=== PATIENT | female | born 1960 | race African-American/Black ===

== ENCOUNTER 2018-03-14 06:11 | Outpatient (CLI) | payer MEDICARE ==
[2018-03-14 13:20] LABS: #Basophils 0.1 thou/uL (0.0-0.2); #Eosinphils 0.3 thou/uL (0.0-0.7); #Lymphocytes 2.8 thou/uL (1.20-3.40); #Monocytes 0.6 thou/uL (0.11-0.59); #Neutrophils 6.3 thou/uL (1.40-6.50); %Basophils 0.8 % (0.0-1.0); %Eosinophils 3.4 % (0.0-10.0); %Lymphocytes 27.5 % (21.0-51.0); %Monocytes 5.6 % (0.0-10.0); %Neutrophils 62.7 % (42.0-75.0); Hemoglobin 11.7 g/dL (12.0-16.0); Mean Corpuscular HGB CONC 32.1 g/dL (32.0-36.0); Mean Corpuscular Hemoglobin 27.3 pg (27.0-31.0); Mean Corpuscular Volume 85.1 fL (78.0-98.0); Mean Platelet Volume 7.5 fL (7.4-10.4); Platelet Count 352 thou/uL (130-400); RBC Distribution Width 14.7 % (11.5-14.5); Red Blood Cell (RBC) Count 4.28 mill/uL (4.20-5.40)
[2018-03-14 13:29] LABS: Prothrombin Time 13.4 SEC (12.0-14.7)
[2018-03-14 13:51] LABS: ALT (SGPT) Less than 7 U/L (8-55); AST (SGOT) 11 U/L (5-34); Albumin 3.7 g/dL (3.5-5.0); Alkaline Phosphatase 66 U/L (40-150); Anion Gap 15 mmol/L (10-20); BUN (Urea Nitrogen) 26 mg/dL (9.8-20.1); Bilirubin, Total 0.4 mg/dL (0.2-1.2); Calc. Creatinine Clearance 0 mL/min (70-130); Calcium 9.2 mg/dL (7.8-10.44); Carbon Dioxide 23 mmol/L (22-29); Chloride 106 mmol/L (98-107); Estimated GFR-MDRD 49; Globulin 3.5 g/dL (2.4-3.5); Glucose 94 mg/dL (70-105); Potassium 4.1 mmol/L (3.5-5.1); Protein, Total 7.2 g/dL (6.0-8.3); Sodium 140 mmol/L (136-145)
== END 2018-03-14 06:12 | disposition home or self-care (01) ==
LOC: LABBT 06:11 → EDSTATUS 12:51
PROVIDERS: ATTEND Internal Medicine Cardiovascular Disease
DX: Z01.812 Encounter for preprocedural laboratory examination (principal); I42.0 Dilated cardiomyopathy
CPT/HCPCS: 80053; 85025; 85610; 85730

== ENCOUNTER 2018-11-12 11:30 | Outpatient (CLI) | payer MEDICARE ==
--- NOTE | 2018-11-12 15:58 | MMO ---
Bilateral MAMMO Bilat Screen [facility]. CLINICAL HISTORY: Patient is 58 years old and is seen for screening. The patient has no family history of breast cancer. The patient has no personal history of cancer. VIEWS: The views performed were: bilateral craniocaudal with tomosynthesis and bilateral mediolateral oblique with tomosynthesis. FILMS COMPARED: The present examination has been compared to prior imaging studies performed at [facility] on 09/27/2005 and 08/24/2010. This study has been interpreted with the assistance of computer-aided detection. MAMMOGRAM FINDINGS: There are scattered fibroglandular densities. There are no suspicious masses, suspicious calcifications, or new areas of architectural distortion. IMPRESSION: THERE IS NO MAMMOGRAPHIC EVIDENCE OF MALIGNANCY. A ROUTINE FOLLOW-UP MAMMOGRAM IN 1 YEAR IS RECOMMENDED. THE RESULTS OF THIS EXAM WERE SENT TO THE PATIENT. ACR BI-RADS Category 1 - Negative MAMMOGRAPHY NOTE: 1. A negative mammogram report should not delay a biopsy if a dominant of clinically suspicious mass is present. 2. Approximately 10% to 15% of breast cancers are not detected by mammography. 3. Adenosis and dense breasts may obscure an underlying neoplasm. Reported by: REVA FORMAN MD Electonically Signed: [id number]
== END 2018-11-12 11:31 | disposition home or self-care (01) ==
LOC: BICMAMMO 11:30
PROVIDERS: ATTEND Family Medicine
DX: Z12.31 Encounter for screening mammogram for malignant neoplasm of breast (principal)
CPT/HCPCS: 77063; 77067

== ENCOUNTER 2018-11-28 14:59 | Day surgery (SDC) | payer MEDICARE ==
[~2018-11-28 14:59] MED LIST: CEFAZOLIN 1 GM VIAL ONE; Glycopyrrolate 0.2 MG/ML 5 ML SYRINGE ONE; Lidocaine 1% PF 5 ML VIAL ONE; Lidocaine 4% PF 5 ML AMP ONE; Metoclopramide HCl 10 MG/2 ML VIAL ONE; Ondansetron PF 4 MG/2 ML Vial ONE; PHENYLEPHRINE-NS 100 MCG/ML 10 ML SYRINGE ONE; PROPOFOL 200 MG/20 ML VIAL ONE; Succinylcholine Chloride 20 MG/ML 10 ml SYRINGE FS ONE; Tobramycin/Dexamethasone Ophth Oint 3.5 GM TUBE ONE; Triamcinolone 40 MG/ML VIAL ONE; ePHEDrine 50 MG/ML VIAL ONE
[2018-11-28] MEDS ORDERED: EPINEPHrine 0.3 MG in Ophthalmic Irrigation Solution 500 ML FS SCH (15:01)
[2018-11-28] MEDS ORDERED: Fentanyl 100 MCG/2 ML VIAL ONE (15:50)
[2018-11-28] MEDS ORDERED: Midazolam HCl 2 mg/2 ml Vial ONE (15:50)
[2018-11-28] MEDS ORDERED: PROPOFOL 20 ML ONE (15:50)
[2018-11-28] MEDS ORDERED: Famotidine/PF 20 mg/2ml Vial ONE (15:50)
[2018-11-28] MEDS ORDERED: hydrALAZINE 20 MG/ML VIAL ONE (15:57)
[2018-11-28 16:30] LABS: Anion Gap 14 mmol/L (10-20); BUN (Urea Nitrogen) 35 mg/dL (9.8-20.1); Calc. Creatinine Clearance 0 mL/min (70-130); Calcium 9.8 mg/dL (7.8-10.44); Carbon Dioxide 21 mmol/L (22-29); Chloride 103 mmol/L (98-107); Estimated GFR-MDRD 41; Glucose 258 mg/dL (70-105); Potassium 4.4 mmol/L (3.5-5.1); Sodium 134 mmol/L (136-145)
--- NOTE | 2018-11-28 19:03 | OP ---
DATE OF PROCEDURE: 11/28/2018 PREOPERATIVE DIAGNOSES: Diabetic retinopathy and glaucoma right eye. POSTOPERATIVE DIAGNOSES: Diabetic retinopathy and glaucoma right eye. PROCEDURES PERFORMED: Pars plana vitrectomy, panretinal photocoagulation, membrane peel, tube shunt, scleral patch graft, right eye. ANESTHESIA: General endotracheal anesthesia. DESCRIPTION OF PROCEDURE: The patient was identified in the preoperative holding area. Appropriate informed consent for the planned surgical procedure on the right eye had been obtained. The patient was transported to the operative suite. Appropriate cardiopulmonary monitoring was established. General endotracheal anesthesia was initiated. Local anesthesia was obtained using retrobulbar block. The patient was prepped and draped in usual sterile manner for ophthalmic surgery for the right eye. Lid speculum was placed in the right eye. A 25-gauge trocar was placed in conjunctiva and sclera superotemporally, inferotemporally, and supranasally. Conjunctival peritomy was created supratemporally. FP7 tube shunt was secured to the sclera superior temporally. Light pipe vitreous cutter inserted in the eye. Core vitrectomy was performed. Vitreous membranes were removed. Panretinal photocoagulation was placed into the far retinal periphery. Peripheral iridotomy was created superiorly and the intra-ocular lens was repositioned into the posterior chamber. Anterior chamber immediately deepened. Tube was introduced through a 22-gauge sclerotomy superior temporally. Tutoplast was placed over the tube insertion site and the conjunctiva was closed with 6-0 plain gut suture. Retrobulbar Kenalog and subconjunctival Ancef were placed. Antibiotic ointment was placed. ointment placed. Eye was patched and shielded. The patient was taken to postoperative recovery unit in good condition having suffered no immediate perioperative complications. The patient was instructed to keep patch and shield on. Avoid lifting or bending, and followup appointment with Dr. Tay. Job ID: [id number]
== END 2018-11-28 19:05 | disposition home or self-care (01) ==
LOC: SDC 14:59
PROVIDERS: ATTEND Ophthalmology Retina Specialist
PROC: 08B43ZZ Excision of Right Vitreous, Percutaneous Approach (ICD-10-PCS; principal; 2018-11-28)
PROC: 08QE3ZZ Repair Right Retina, Percutaneous Approach (ICD-10-PCS; 2018-11-28)
DX: E11.39 Type 2 diabetes mellitus with other diabetic ophthalmic complication (principal); E11.319 Type 2 diabetes mellitus with unspecified diabetic retinopathy without macular edema; H43.311 Vitreous membranes and strands, right eye; H40.9 Unspecified glaucoma; H42 Glaucoma in diseases classified elsewhere
CPT/HCPCS: 66761; 67036; 80048; L8612; 36415; J0171; J0360; J0690; J2001; J2250; J2405; J2704; J2765; J3010; J3301; J3490; S0028

== ENCOUNTER 2019-08-18 20:51 | Inpatient (IN) | payer MEDICARE, OTHER ==
[2019-08-18] MEDS ORDERED: Acetaminophen 500 MG TAB ONE ×2 (21:02→21:15)
[2019-08-18] MEDS ORDERED: cefTRIAXone\\ROCEPHIN 2 GM VIAL ONE (21:15)
[2019-08-18 21:29] LABS: Base Excess-Venous -3.4 mmol/L (-2.0 to 3.0); Bicarbonate (HCO3v) 21.6 mmol/L (22.0-28.0); CO2 Tension (PvCO2) 38.1 mmHg (40.0-50.0); Calcium, Ionized 1.04 mmol/L (See Comments:); Chloride 106 mmol/L (98-107); Potassium 4.8 mmol/L (3.5-5.1); Sodium 136 mmol/L (138-145); T. Carbon Dioxide 22.8 mmol/L (22.0-28.0); vO2 Saturation-calc 50.2 % (60.0-85.0)
[2019-08-18 21:39] LABS: #Lymphocytes 1.6 thou/uL (1.20-3.40); #Monocytes 0.5 thou/uL (0.11-0.59); #Neutrophils 4.4 thou/uL (1.40-6.50); %Basophils 0.3 % (0.0-1.0); %Eosinophils 0.1 % (0.0-10.0); %Lymphocytes 24.2 % (21.0-51.0); %Monocytes 7.6 % (0.0-10.0); %Neutrophils 67.8 % (42.0-75.0); Hemoglobin 11.2 g/dL (12.0-16.0); Mean Corpuscular HGB CONC 32.8 g/dL (32.0-36.0); Mean Corpuscular Hemoglobin 28.5 pg (27.0-31.0); Mean Corpuscular Volume 86.8 fL (78.0-98.0); Platelet Count 219 thou/uL (130-400); Red Blood Cell (RBC) Count 3.92 mill/uL (4.20-5.40); White Blood Cell (WBC) Count 6.5 thou/uL (4.8-10.8)
[2019-08-18 21:54] LABS: ALT (SGPT) 14 U/L (8-55); AST (SGOT) 33 U/L (5-34); Albumin 3.5 g/dL (3.5-5.0); Alkaline Phosphatase 56 U/L (40-110); Anion Gap 18 mmol/L (10-20); BUN (Urea Nitrogen) 60 mg/dL (9.8-20.1); Bilirubin, Total 0.3 mg/dL (0.2-1.2); CK (CPK) 505 U/L (29-168); Calc. Creatinine Clearance 0 mL/min (70-130); Calcium 8.8 mg/dL (7.8-10.44); Carbon Dioxide 19 mmol/L (22-29); Chloride 102 mmol/L (98-107); Estimated GFR-MDRD 21; Globulin 4.5 g/dL (2.4-3.5); Glucose 104 mg/dL (70-105); Potassium 4.3 mmol/L (3.5-5.1); Sodium 135 mmol/L (136-145)
[2019-08-18] MEDS ORDERED: Azithromycin 500 MG VIAL ONE (22:39)
[2019-08-18] MEDS ORDERED: Dexamethasone 10 MG/ML VIAL ONE (22:39)
[2019-08-18 23:23] LABS: Bacteria/HPF 4+ HPF (None Seen); Bilirubin Negative (Negative); Blood, Urine 1+ (Negative); Clarity Extra Turbid (Clear); Glucose, Urine (Dipstick) Normal (Negative); Leukocyte 500 Leu/uL (Negative); Nitrite Negative (Negative); Protein, Urine (Dipstick) 600 mg/dL (Neg-Trace); Urobilinogen Normal mg/dL (Less than 2); WBC/HPF Greater than 50 HPF (0-3)
[2019-08-18 23:24] LABS: Urine Culture Reflex No No
[2019-08-18] MEDS ORDERED: Senokot S 8.6-50 MG TAB PO PRN (23:25)
[2019-08-18] MEDS ORDERED: Guaifenesin DM 100-10/5 ML UDCUP PO PRN (23:25)
[2019-08-18] MEDS ORDERED: HYDROcodone/Acetaminophen 5/325 mg Tablet PO PRN (23:25)
[2019-08-18] MEDS ORDERED: Dextrose 50% Abboject 50 ML SYRINGE SLOW IVP PRN (23:25)
[2019-08-18] MEDS ORDERED: Acetaminophen 325 MG TAB PO PRN (23:25)
[2019-08-18] MEDS ORDERED: Dextrose 5% in Water 1,000 ML IV PRN (23:25)
[2019-08-18] MEDS ORDERED: HumaLOG 300 UNITS/3 ML VIAL SC PRN (23:25)
[2019-08-18] MEDS ORDERED: Ondansetron PF 4 MG/2 ML Vial IVP PRN (23:25)
[2019-08-18] MEDS ORDERED: Bisacodyl 10 MG SUPP PR PRN (23:25)
[2019-08-18 23:27] LABS: CKMB 1.5 ng/mL (0-6.6)
--- NOTE | 2019-08-19 00:01 | HP ---
REASON FOR ADMISSION: Fever, possible COVID pneumonia. HISTORY OF PRESENTING ILLNESS: The patient gives history of having fever, shortness of breath, generalized weakness, and chills from last 2 days. She has had mostly dry cough. No complaints of urinary frequency or urgency. No complaints of chest pain or palpitation. She has been able to ambulate in the house. The patient has loss of appetite from last 2 to 3 days and has been feeling very weak now. She also does mention that her was sick a month back and got tested for COVID which was negative. Mrs. Arriaga also mentions that she was started on Entresto a week back for ejection fraction of around 30% by Dr. Kelly. PAST MEDICAL AND SURGICAL HISTORY: History of coronary artery disease with 4 stents in the past, dyslipidemia, obesity, diabetes mellitus type 2, cardiomyopathy with EF of around 30%, cholecystectomy, tubal ligation. CURRENT MEDICATIONS: The patient does not recall all her medications, but she knows she was started on Entresto a week back. Per prior records from here from February of 2018, 1. The patient is on Toprol-XL 100 mg twice daily. 2. Januvia 100 mg daily. 3. Glipizide 5 mg twice daily. 4. Lasix daily. ALLERGIES: NO KNOWN DRUG ALLERGIES. PERSONAL HISTORY: Does not abuse alcohol or drugs. No history of smoking. FAMILY HISTORY: No family history of premature heart disease or cancer per patient. REVIEW OF SYSTEMS: CONSTITUTIONAL: Negative for weight loss or gain, ability to conduct usual activities. SKIN: Negative for rash, itching. EYES: Negative for double vision, pain. ENT/MOUTH: Negative for nose bleeding, neck stiffness, pain, tenderness. CARDIOVASCULAR: Negative for palpitations, dyspnea on exertion, orthopnea. RESPIRATORY: Negative for shortness of breath, wheezing, cough, hemoptysis, fever or night sweats. GASTROINTESTINAL: Negative for poor appetite, abdominal pain, heartburn, nausea , vomiting, constipation, or diarrhea. GENITOURINARY: Negative for urgency, frequency, dysuria, nocturia. MUSCULOSKELETAL: Negative for pain, swelling. NEUROLOGIC/PSYCHIATRIC: Negative for anxiety, depression. ALLERGY/IMMUNOLOGIC: Negative for skin rash, bleeding tendency. CODE STATUS: Full. Power of story teller is her . PHYSICAL EXAMINATION: GENERAL: The patient is a 59-year-old female who is currently not in any acute distress. VITAL SIGNS: Blood pressure 176/80, pulse 110 per minute, respiratory rate 24 per minute, temperature 102.2 degrees Fahrenheit, saturating 94% on room air. NECK: Supple. No elevated JVD. HEENT: Eyes; extraocular muscles are intact. Pupils reacting to light. Oral cavity, mucous membranes are dry. No exudates or congestion. CARDIOVASCULAR: S1 and S2 heard. Regular rhythm. RESPIRATORY: Air entry 1+ bilateral. Scattered rales plus in the infrascapular area rhonchi plus bilateral. ABDOMEN: Soft. Bowel sounds heard. No tenderness, rigidity, or guarding. EXTREMITIES: No peripheral edema or calf tenderness. VASCULAR: Peripheral pulses 1+ bilateral. No ischemic ulcerations or gangrene. CENTRAL NERVOUS SYSTEM: No gross focal deficits noted. The patient is alert, awake, oriented well. PSYCHIATRIC: The patient's mood is euthymic. No hallucinations or delusions. LABORATORY DATA: White count of 6.5, H and H of 11 and 34, platelet count 219, MCV is 86 with 67% neutrophils. Electrolytes stable. Serum bicarb is 19, BUN 60, creatinine 2.7, serum glucose 104, lactic acid 1.1. Liver enzymes within normal limits. Troponin I 0.1, CK levels 505, CK-MB 1.5, albumin is 3.5. UA is positive for leuk esterase. IMAGING STUDIES: Chest x-ray done shows patchy infiltrate versus pulmonary vascular congestion. EKG done shows normal sinus rhythm at 110 beats per minute. There is poor R-wave progression and signs of LVH. CLINICAL IMPRESSION AND PLAN: The patient will be admitted to telemetry for likely coronavirus pneumonia with fever of 102 and being sick for 2 days now. COVID- 19 PCR has been obtained in the ER. She will be on droplet and airborne precautions. The patient has acute kidney injury with history of chronic kidney disease, which appears to be multifactorial with loss of appetite, current fever and her being on Entresto for last 1 week now. It is unclear what her baseline creatinine is, but the patient knows that she has chronic kidney disease. We will continue her on a small dose of aspirin and Toprol-XL at 100 mg twice daily and Januvia for now. We will hold off on glipizide. She will be on Humalog coverage for now. Influenza A and B antigens will also be checked. Blood and urine cultures have been obtained in the ER. We will place her on Levaquin in view of urinary tract infection and current infiltrates on the chest x-ray. Job ID: [id number] MTDD
[2019-08-19 06:03] LABS: ALT (SGPT) 13 U/L (8-55); AST (SGOT) 31 U/L (5-34); Albumin 3.1 g/dL (3.5-5.0); Alkaline Phosphatase 49 U/L (40-110); Anion Gap 18 mmol/L (10-20); BUN (Urea Nitrogen) 61 mg/dL (9.8-20.1); Bilirubin, Direct 0.1 mg/dL (0.1-0.3); Bilirubin, Total 0.2 mg/dL (0.2-1.2); Calc. Creatinine Clearance 45 mL/min (70-130); Calcium 8.5 mg/dL (7.8-10.44); Carbon Dioxide 15 mmol/L (22-29); Chloride 105 mmol/L (98-107); Estimated GFR-MDRD 24; Glucose 188 mg/dL (70-105); Potassium 4.7 mmol/L (3.5-5.1); Protein, Total 7.2 g/dL (6.0-8.3); Sodium 133 mmol/L (136-145)
--- NOTE | 2019-08-19 06:32 | RAD ---
PORTABLE CHEST: COMPARISON: A 06/17/2018 exam. HISTORY: Shortness of breath, chills, generalized weakness. Evaluation for COVID. FINDINGS: Heart size is enlarged. There are patchy infiltrative lung changes along the left heart border and r ight mid and lower lung zones. IMPRESSION: Patchy infiltrates. These changes could certainly be related to COVID. POS: [facility]
[2019-08-19 06:33] LABS: Band 20 % (5-11); Hemoglobin 11.3 g/dL (12.0-16.0); Lymphocytes 16 % (21-51); MDiff Complete? YES; Mean Corpuscular HGB CONC 32.6 g/dL (32.0-36.0); Mean Corpuscular Hemoglobin 28.5 pg (27.0-31.0); Mean Corpuscular Volume 87.4 fL (78.0-98.0); Mean Platelet Volume 8.1 fL (7.4-10.4); Monocytes 2 % (0-10); Neutrophil 62 % (42-75); Platelet Count 222 thou/uL (130-400); RBC Distribution Width 14.2 % (11.5-14.5); Red Blood Cell (RBC) Count 3.98 mill/uL (4.20-5.40); White Blood Cell (WBC) Count 5.4 thou/uL (4.8-10.8)
[2019-08-19] MEDS: Aspirin Chewable 81 MG TAB PO SCH (08:20)
[2019-08-19] MEDS: Heparin 5,000 UNITS/ML VIAL SC SCH ×2 (08:20→20:55)
[2019-08-19] MEDS: Alogliptin 6.25 MG TAB PO SCH (08:20)
[2019-08-19] MEDS: HumaLOG 300 UNITS/3 ML VIAL SC PRN ×2 (11:45→17:04)
[2019-08-19 14:20] LABS: SARS-CoV-2 MS2 Positive; SARS-CoV-2 N Gene Positive; SARS-CoV-2 S Gene Positive; SARS-CoV-2 orf1ab Positive
--- NOTE | 2019-08-19 17:49 | PDOC.HOSPP ---
- Subjective Encounter Date: 08/19/19 Encounter Time: 17:30 Subjective: f/u for + COVID-19 with PNA on O2 via NC and - Objective Vital Signs & Weight: Vital Signs (12 hours) Temp Pulse Ox 08/19/19 15:00 98.2 F 08/19/19 11:00 97.8 F 08/19/19 08:00 99 08/19/19 07:00 97.5 F L Weight Weight 257 lb Most Recent Monitor Data Heart Rate from ECG 82 NIBP 182/99 NIBP BP-Mean 126 Respiration from ECG 18 SpO2 100 Result Diagrams: 08/19/19 05:07 08/19/19 05:07 Additional Labs: Accuchecks 08/19/19 08/19/19 08/19/19 17:07 11:45 06:20 POC Glucose 253 H 248 H 188 H Microbiology 08/19/19 08:43 Nasal swab Influenza Types A,B Direct EIA - Final 08/18/19 22:55 Urine voided Urine Culture - Preliminary Gram Negative Shalom 08/18/19 21:15 Venous blood - Right Arm Blood Culture - Preliminary Specimen has been received and culture in progress. No Growth to date. 08/18/19 21:12 Venous blood - Left Arm Blood Culture - Preliminary Specimen has been received and culture in progress. No Growth to date. Laboratory Tests 08/18/19 08/18/19 08/19/19 21:15 22:52 05:07 Creatinine 2.77 H B-Natriuretic Peptide TSH 3rd Generation 0.4455 COVID-19 PCR DETECTED A* 08/19/19 05:07 Creatinine B-Natriuretic Peptide 122.7 H TSH 3rd Generation COVID-19 PCR Radiology Reviewed by me: Yes (PCXR - bilat infiltrates) EKG Reviewed by me: Yes (Tele - SR) Hospitalist ROS - Medication Medications: Active Medications Generic Name Dose Route Start Last Admin Trade Name Freq PRN Reason Stop Dose Admin Alogliptin Benzoate 6.25 mg 08/19/19 09:00 08/19/19 08:20 Alogliptin PO 6.25 mg DAILY SAIDA Administration Aspirin 81 mg 08/19/19 09:00 08/19/19 08:20 Aspirin Chewable PO 81 mg DAILY SAIDA Administration Heparin Sodium (Porcine) 5,000 units 08/19/19 09:00 08/19/19 08:20 Heparin SC 5,000 units BID SAIDA Administration Insulin Human Lispro 0 units 08/18/19 23:25 08/19/19 17:04 Humalog SC 6 unit .MODERATE SLIDING SC PRN Administration Moderate Correctional Scale Levofloxacin 250 mg 08/19/19 06:00 08/19/19 06:10 Levaquin PO 250 mg 0600 SAIDA Administration - Exam General Appearance: NAD, awake alert Eye: PERRL, anicteric sclera ENT: normocephalic atraumatic, no oropharyngeal lesions Neck: supple, symmetric, no JVD, no thyromegaly, no lymphadenopathy Heart: RRR, no gallops, no rubs, normal peripheral pulses Heart - other findings: S1, S2 Respiratory: no tachypnea Respiratory - other findings: diminished in bases, occ rhonchi Gastrointestinal: soft, non-tender, non-distended, normal bowel sounds, no palpable masses Extremities: no cyanosis, no clubbing Skin: normal turgor, no lesions Neurological: cranial nerve grossly intact, no new deficit Musculoskeletal: normal tone, normal strength Psychiatric: normal affect, A&O x 3 Hosp A/P (1) Pneumonia due to COVID-19 virus Code(s): U07.1 - COVID-19; J12.89 - OTHER VIRAL PNEUMONIA Status: Acute Plan: Add Zithromax/Albuterol/Prednisone (2) Acute respiratory failure with hypoxia Code(s): J96.01 - ACUTE RESPIRATORY FAILURE WITH HYPOXIA Status: Acute Plan: Wean off O2 as clinically indicated (3) Acute kidney injury superimposed on CKD Code(s): N17.9 - ACUTE KIDNEY FAILURE, UNSPECIFIED; N18.9 - CHRONIC KIDNEY DISEASE, UNSPECIFIED Status: Acute Plan: Avoid nephrotoxic meds and limit contrast, hold JUAREZ-i/diuretics (4) Cardiomyopathy Code(s): I42.9 - CARDIOMYOPATHY, UNSPECIFIED Status: Chronic Plan: EF in 30% range, start Coreg, resume Imdur (5) HTN (hypertension) Code(s): I10 - ESSENTIAL (PRIMARY) HYPERTENSION Status: Chronic Qualifiers: Hypertension type: essential hypertension Qualified Code(s): I10 - Essential (primary) hypertension Plan: Start Coreg, resume home BP regimen but hold JUAREZ-i/HCTZ - Plan continue antibiotics, social media community manager, respiratory therapy, out of bed/ambulate , DVT proph w/SCDs Continue supportive mgmt Start Zithromax 500mg IV daily d/c Levaquin Start Prednisone 40mg daily Wean O2 as clinically indicated AM lab: BMP Likely home in 24h
[2019-08-19] MEDS ORDERED: Carvedilol 6.25 MG TAB PO SCH (18:00)
[2019-08-19] MEDS ORDERED: predniSONE 20 MG TAB PO SCH (18:15)
[2019-08-19 20:59] VITALS: BP 133/66
[2019-08-19] MEDS ORDERED: Lisinopril/Hydrochlorothiazide 20/25 mg Tablet PO SCH (21:00)
[2019-08-19] MEDS ORDERED: Azithromycin 500 MG in Sodium Chloride 0.9% 250 ML 250 ML IVPB SCH ×2 (21:00→23:00)
[2019-08-19] MEDS ORDERED: Albuterol Sulfate 1.25 MG/3 ML NEB NEB SCH (23:00)
[2019-08-20 04:01] LABS: Anion Gap 16 mmol/L (10-20); BUN (Urea Nitrogen) 70 mg/dL (9.8-20.1); Calc. Creatinine Clearance 52 mL/min (70-130); Calcium 8.2 mg/dL (7.8-10.44); Carbon Dioxide 18 mmol/L (22-29); Chloride 104 mmol/L (98-107); Estimated GFR-MDRD 28; Glucose 264 mg/dL (70-105); Potassium 4.8 mmol/L (3.5-5.1); Sodium 133 mmol/L (136-145)
[2019-08-20] MEDS: HumaLOG 300 UNITS/3 ML VIAL SC PRN (06:19)
[2019-08-20 06:26] VITALS: BMI 40.9
[2019-08-20] MEDS ORDERED: Carvedilol 6.25 MG TAB PO SCH (08:00)
[2019-08-20] MEDS ORDERED: predniSONE 20 MG TAB PO SCH (08:00)
[2019-08-20] MEDS: Aspirin Chewable 81 MG TAB PO SCH (08:13)
[2019-08-20] MEDS: Alogliptin 6.25 MG TAB PO SCH (08:16)
[2019-08-20] MEDS: PROVENTIL INHALER 6.7 G (200 INHALATIONS) INH SCH ×2 (08:51→09:11)
[2019-08-20] MEDS ORDERED: Clopidogrel Bisulfate 75 MG TAB PO SCH (09:00)
[2019-08-20 09:48] VITALS: TEMP 98
[2019-08-20] MEDS: Heparin 5,000 UNITS/ML VIAL SC SCH (11:15)
--- NOTE | 2019-08-20 23:31 | DIS ---
DATE OF ADMISSION: 08/18/2019 DATE OF DISCHARGE: 08/20/2019 DISCHARGE DIAGNOSES: 1. Pneumonia secondary to COVID-19 viral infection. 2. Acute hypoxic respiratory failure, resolving. 3. Acute kidney injury on chronic kidney disease, resolving. 4. Cardiomyopathy, chronic. 5. Hypertension, stable. CONSULTATIONS: None. PERTINENT LABORATORY AND X-RAY FINDINGS: Creatinine ranged between 2.15 to 2.77. Estimated GFR ranged between 21 to 28. Lactic acid level 1.1. Magnesium level 2.0. Troponin I of 0.111. BNP 123. TSH 0.45. CBC showed a hemoglobin of 11.2, hematocrit 34. COVID-19 PCR positive, 08/18/2019. Blood cultures x2 dated 08/18/2019, showed no growth to date. Urine culture dated 08/18/2019, showed less than 10,000 colonies of gram-negative rods. Influenza A and B antigen negative, 08/19/2019. Portable chest x-ray dated 08/18/2019, showed patchy infiltrates bilaterally. HOSPITAL COURSE: The patient was admitted after presenting with fever, shortness of breath and hypoxia. The patient underwent general evaluation including chest imaging showing bilateral infiltrates and concern for potential COVID-19 exposure. The patient underwent COVID-19 evaluation with positive results as stated previously. The patient was placed on IV Zithromax in addition to bronchodilator therapy and prednisone. The patient was able to wean off oxygen supplementation in approximately 24 hours and overall remained clinically stable with supportive management. I have examined the patient at the time of discharge and discussed followup instructions. The patient verbalized understanding and agreement ready for discharge on 08/20/2019. DISCHARGE MEDICATIONS: 1. Zithromax 500 mg p.o. daily x5 days. 2. Prednisone 20 mg take 2 tablets p.o. daily x3 days, followed by 1 tablet p.o. daily x3 days, followed by half a tablet p.o. daily x3 days. 3. Plavix 75 mg p.o. daily. 4. Lasix 20 mg p.o. q.a.m. 5. Isosorbide mononitrate 30 mg p.o. daily. 6. Lisinopril/hydrochlorothiazide 20/25 mg one tablet p.o. b.i.d. 7. Januvia 100 mg p.o. daily. 8. Albuterol sulfate 2 puffs inhaled q.8 hours p.r.n. FOLLOWUP: The patient may follow up with Dr. Moraima Padilla within 7 days of discharge. CONDITION ON DISCHARGE: Stable. ACTIVITY: Ad-amanda. DIET: Heart healthy. CODE STATUS: Full. DISPOSITION: Home, 08/20/2019. TIME SPENT: Total time preparing and coordinating discharge, 34 minutes. Job ID: [id number]
--- NOTE | 2019-08-22 16:56 | EKG ---
Test Reason : Blood Pressure : / mmHG Vent. Rate : 110 BPM Atrial Rate : 110 BPM P-R Int : 136 ms QRS Dur : 078 ms QT Int : 326 ms P-R-T Axes : 042 -22 111 degrees QTc Int : 441 ms Sinus tachycardia Possible Left atrial enlargement Left ventricular hypertrophy with repolarization abnormality Abnormal ECG Confirmed by YOSSI GHOSH M.D. ([id number]), editor managing director ISMAEL WHELAN ([id number]) on 08/22/2019 4:56:33 PM Referred By: Confirmed By:YOSSI GHOSH M.D.
== END 2019-08-20 12:18 | disposition home or self-care (01) | DRG 177 ==
LOC: ERS 20:51 → IMCU/EMU 23:18
PROVIDERS: ADMIT Internal Medicine; ATTEND Internal Medicine
PROC: 8E0ZXY6 Isolation (ICD-10-PCS; principal; 2019-08-18)
DX: U07.1 COVID-19 (principal); J12.89 Other viral pneumonia; J96.01 Acute respiratory failure with hypoxia; N17.9 Acute kidney failure, unspecified; Z68.41 Body mass index [BMI] 40.0-44.9, adult; I42.9 Cardiomyopathy, unspecified; I12.9 Hypertensive chronic kidney disease with stage 1 through stage 4 chronic kidney disease, or unspecified chronic kidney disease; N18.9 Chronic kidney disease, unspecified; I25.10 Atherosclerotic heart disease of native coronary artery without angina pectoris; E78.5 Hyperlipidemia, unspecified; E11.22 Type 2 diabetes mellitus with diabetic chronic kidney disease; E66.9 Obesity, unspecified; Z95.5 Presence of coronary angioplasty implant and graft; Z90.49 Acquired absence of other specified parts of digestive tract; Z98.51 Tubal ligation status
CPT/HCPCS: 36415; 36416; 71045; 80048; 80053; 80076; 81001; 82330; 82550; 82553; 82803; 83605; 83735; 83880; 84443; 84484; 85025; 87040; 87086; 87635; 87804; 90471; 90732; 93005; 96365; 96366; 96367; 96375; C1752; G0009; J0456; J0696; J1100; J1644; J7050; J7512; U0003

== ENCOUNTER 2021-02-06 11:10 | Outpatient (CLI) | payer MEDICARE | END 2021-02-06 11:11 | disposition home or self-care (01) | LOC: BICMAMMO 11:10 | PROVIDERS: ATTEND Family Medicine | DX: Z12.31 Encounter for screening mammogram for malignant neoplasm of breast (principal) | CPT/HCPCS: 77063; 77067 ==

== ENCOUNTER 2022-11-09 10:47 | Outpatient (CLI) | payer MEDICARE, MEDICAID | END 2022-11-09 10:48 | disposition home or self-care (01) | LOC: BICULT 10:47 | PROVIDERS: ATTEND Internal Medicine Nephrology | DX: I12.9 Hypertensive chronic kidney disease with stage 1 through stage 4 chronic kidney disease, or unspecified chronic kidney disease (principal); N18.5 Chronic kidney disease, stage 5 | CPT/HCPCS: 93970 ==

== ENCOUNTER 2022-12-31 13:20 | Outpatient (CLI) | payer MEDICARE, MEDICAID | END 2022-12-31 13:21 | disposition home or self-care (01) | LOC: RAD 13:20 | PROVIDERS: ATTEND Internal Medicine Nephrology | DX: I12.0 Hypertensive chronic kidney disease with stage 5 chronic kidney disease or end stage renal disease (principal); N18.5 Chronic kidney disease, stage 5; D63.1 Anemia in chronic kidney disease | CPT/HCPCS: 36415; 71046; 86704; 86706; 86803; 87340 ==

== ENCOUNTER 2024-01-07 11:47 | Outpatient (CLI) | payer MEDICARE, MEDICAID | END 2024-01-07 11:48 | disposition home or self-care (01) | LOC: BICMAMMO 11:47 | PROVIDERS: ATTEND Family Medicine | DX: Z12.31 Encounter for screening mammogram for malignant neoplasm of breast (principal) | CPT/HCPCS: 77063; 77067 ==

== ENCOUNTER 2024-12-30 14:48 | Emergency (ER) | payer MEDICARE, MEDICAID | END 2024-12-30 16:46 | disposition home or self-care (01) | LOC: ERS 14:48 | DX: L03.115 Cellulitis of right lower limb (principal); J30.9 Allergic rhinitis, unspecified; I10 Essential (primary) hypertension; E11.9 Type 2 diabetes mellitus without complications ==